=== PATIENT | female | born 1955 | race Caucasian/White ===

== ENCOUNTER 2017-02-09 13:07 | Emergency (ER) | payer SELFPAY ==
--- NOTE | 2017-02-09 15:09 | XRay Report ---
FINAL REPORT PROCEDURE: XR SHOULDER 2+V LT TECHNIQUE: Two views of the left shoulder are obtained HISTORY: left shoulder pain COMPARISON: No prior studies are available for comparison. FINDINGS: There are possible several calcified loose body body seen. These may be calcified structures outside the joint space anteriorly, though. No fracture or dislocation is seen. No osteoarthritic changes are seen. IMPRESSION: Three calcific densities are seen and may be anteriorly in the joint space or outside of the joint space.
[2017-02-09] MEDS ORDERED: MOTRIN PO ONE (17:43)
[2017-02-09] MEDS ORDERED: TYLENOL #3 PO ONE (17:43)
--- NOTE | 2017-02-09 17:53 | Emergency Department Report ---
Upper Extremity - HPI Chief Complaint: Shoulder Injury Stated Complaint: LEFT SHOULDER PAIN , BLOOD PRESSURE HIGH Time Seen by Provider: 02/09/17 16:57 Upper Extremity: Left Shoulder Occurred When: 2 Days Severity: mild Symptoms: Yes Pain with Movement (pain with flexion and extension abduction and abduction of left shoulder), Yes Limited Range of Movement (range of motion limited by pain left shoulder), No Deformity, No Numbness, No Weakness, No Swelling, No Bruising/Ecchymosis, No Laceration or Abrasion Other History: 61-year-old female past medical history none presents with complaint of 2-3 days of aching intermittent left shoulder pain. Nonradiating, states that pain limits her left shoulder movement. As per patient's daughter who is at bedside patient states that when she lifted her grandson approximately 3 days ago she felt sharp onset of pain in her left shoulder with lifting motion in her left shoulder. Patient has been taking [id number] NSAIDs with mild but not significant relief of her pain. Patient denies any chest pain palpitations shortness of breath or diaphoresis. Patient is clutching her left arm due to left shoulder pain. ED Review of Systems ROS: Stated complaint: LEFT SHOULDER PAIN , BLOOD PRESSURE HIGH Other details as noted in HPI Constitutional: denies: chills, fever Eyes: denies: eye pain, eye discharge, vision change ENT: denies: ear pain, throat pain Respiratory: denies: cough, shortness of breath, wheezing Cardiovascular: denies: chest pain, palpitations Endocrine: no symptoms reported Gastrointestinal: denies: abdominal pain, nausea, diarrhea Genitourinary: denies: urgency, dysuria, discharge Musculoskeletal: as per HPI, arthralgia (left shoulder pain). denies: back pain , joint swelling Skin: denies: rash, lesions Neurological: denies: headache, weakness, paresthesias Psychiatric: denies: anxiety, depression Hematological/Lymphatic: denies: easy bleeding, easy bruising ED Past Medical Hx - Past Medical History Previous Medical History?: No - Surgical History Past Surgical History?: No - Social History Smoking Status: Never Smoker Substance Use Type: Non Opiate Pain, Other - Medications Home Medications: Home Medications Medication Instructions Recorded Confirmed Last Taken Type Aspirin [Aspirin BABY CHEW TAB] 81 mg PO QDAY 02/09/17 02/09/17 02/09/17 History Calcium Carbonate [Calcium] 1 tab PO DAILY 02/09/17 02/09/17 02/08/17 History Naproxen [Naprosyn TAB] 500 mg PO BID PRN #25 tablet 02/09/17 Unknown Rx [place]-3 Fatty Acids/Fish Oil [Fish 1 each PO DAILY 02/09/17 02/09/17 02/08/17 History Oil] Upper Extremity Exam - Exam General: Vital signs noted. No distress. Alert and acting appropriately. Head and Torso: No HEENT Abnormality, No Neck Tenderness, No Chest/Lungs Abnormality, No Abdominal Tenderness, No Back Tenderness Shoulder Exam: Yes Shoulder Tenderness (tenderness to deep palpation overlying the left deltoid region/anterior shoulder joint), Yes Normal Range of Motion in Shoulder (patient is able to minimally range abduct and adduct left shoulder, internally and externally rotate left shoulder.), No Clavicle Tenderness, No Shoulder Deformity, No AC Joint Tenderness Arm Exam: No Arm/Humerus Tenderness, No Arm Deformity Elbow: Yes Normal Range of Motion in Elbow (elbow flexion and extension intact) , No Elbow Tenderness, No Elbow Deformity Forearm: Yes Pain with Pronation (pronation and supination intact the left upper extremity/elbow/forearm), Yes Pain with Supination, No Forearm Tenderness , No Forearm Deformity Wrist: Yes Normal ROM in Wrist (wrist flexion and extension and lateral flexion intact), No Wrist Tenderness, No Wrist Deformity, No Snuffbox Tenderness, No Pain with Axial Thumb Compression Hand: Yes Normal ROM in Digit(s) (all MCPs DIPs PIPs lumbricals fully intact range of motion), No Hand Tenderness, No Hand Deformity, No Digit Tenderness, No Digit(s) Deformity, No Tendon Dysfunction CMS Exam: Yes Normal Distal Pulses (distal radial brachial pulses strong to palpation, capillary refill less than one second in all fingers), No Broken Skin , No Normal Capillary Refill, No Normal Distal Sensation Front/Back of Body, Lg (Color): 1 - Pain on palpation of this aspect of the shoulder, no overlying erythema or signs of cellulitis ED Course Vital Signs 02/09/17 13:30 Temperature 98.3 F Pulse Rate 92 H Respiratory 18 Rate Blood Pressure 144/82 O2 Sat by Pulse 100 Oximetry ED Medical Decision Making - Medical Decision Making A/P: Calcific tendinitis left shoulder 1-x-ray left shoulder shows abnormal calcifications around shoulder joint. Based on patient's complaint and history provided by the patient and her family member pain is likely due to calcific tendinitis. As per patient she has had intermittent left shoulder pain for several years but it was exacerbated by lifting her grandson 2 days ago. Patient has no chest pain or shortness of breath no diaphoretic episodes no generalized weakness that she complains of during clinical interview. Daughter assisted and communication as patient speaks Sinhala. 2-trial of naproxen and follow-up with orthopedics 3-I advised patient to not use shoulder sling as this can lead to frozen shoulder syndrome Critical care attestation.: If time is entered above; I have spent that time in minutes in the direct care of this critically ill patient, excluding procedure time. ED Disposition Clinical Impression: Calcific tendinitis of left shoulder Left shoulder pain Qualifiers: Chronicity: acute Qualified Code(s): M25.512 - Pain in left shoulder Disposition: DC-01 TO HOME OR SELFCARE Is pt being admited?: No Does the pt Need Aspirin: No Condition: Stable Instructions: Rotator Cuff Tendinitis (ED), Osteoarthritis (ED), Shoulder Sprain (ED), Calcific Tendinitis (ED) Prescriptions: Naproxen [Naprosyn TAB] 500 mg PO BID PRN #25 tablet PRN Reason: Pain Referrals: NICOLLE RATLIFF MD [Staff Physician] - 3-[address] [facility] [Provider Group] - 3-5 Days [facility] [Outside] - 3-5 Days [facility] [Outside] - 3-5 Days Forms: Accompanied Note Time of Disposition: 17:59
[2017-02-09 18:12] VITALS: BP 140/84
== END 2017-02-09 18:12 | disposition home or self-care (01) ==
LOC: ED 13:07
DX: M75.32 Calcific tendinitis of left shoulder (principal)
CPT/HCPCS: 99283